=== PATIENT | male | born 1945 | race Caucasian/White ===

== ENCOUNTER 2018-10-18 14:38 | Emergency (ER) | payer MEDICARE ==
--- NOTE | 2018-10-18 16:14 | EDM.PDOC ---
ED HPI GENERAL MEDICAL PROBLEM - General Chief Complaint: ENT Problem Stated Complaint: GRASS IN RIGHT EYE Time Seen by Provider: 10/18/18 15:53 Source of Information: Reports: Patient History Limitations: Reports: No Limitations - History of Present Illness INITIAL COMMENTS - FREE TEXT/NARRATIVE: 72 yo male presents to ER with mild irritation and very red right eye. He was mowing his lawn and felt something fly into his eye. generally healthy right eye Pain Score (Numeric/FACES): 2 - Related Data Allergies Allergy/AdvReac Type Severity Reaction Status Date / Time amoxicillin [From Augmentin] Allergy Other Verified 10/18/18 15:49 clavulanic acid Allergy Other Verified 10/18/18 15:49 [From Augmentin] Home Meds: Home Meds Aspirin [Low Dose Aspirin EC] 81 mg PO DAILY 10/18/18 [History] Omeprazole Magnesium [Prilosec Otc] 20 mg PO DAILY 10/18/18 [History] hydroCHLOROthiazide [Hydrochlorothiazide] 12.5 mg PO DAILY 10/18/18 [History] predniSONE [Prednisone] 2.5 mg PO DAILY 10/18/18 [History] Past Medical History Cardiovascular History: Reports: Arrhythmia, Hypertension Gastrointestinal History: Reports: GERD - Past Surgical History Musculoskeletal Surgical History: Reports: Knee Replacement Social & Family History - Tobacco Use Smoking Status *Q: Never Smoker - Caffeine Use Caffeine Use: Reports: Coffee - Alcohol Use Days Per Week of Alcohol Use: 7 Number of Drinks Per Day: 1 Total Drinks Per Week: 7 - Recreational Drug Use Recreational Drug Use: No ED ROS GENERAL - Review of Systems Review Of Systems: See Below Constitutional: Denies: Fever, Chills HEENT: Reports: Eye Pain. Denies: Eye Discharge Respiratory: Denies: Shortness of Breath ED EXAM GENERAL W FULL EYE - Physical Exam Exam: See Below Exam Limited By: No Limitations General Appearance: Alert, WD/WN, No Apparent Distress Eye Exam: Bilateral Eye: PERRL Eyelids: Bilateral: Normal Appearance Conjunctiva & Sclera: Right: Subconjuctival Hemorrhage Cornea Exam: Bilateral: Normal Appearance Extraocular Movements: Bilateral: Intact Pupils: Normal Accommodation Ears: Normal External Exam Nose: Normal Inspection Head: Atraumatic, Normocephalic Respiratory/Chest: No Respiratory Distress Course - Vital Signs Last Recorded V/S: Last Vital Signs Temp 35.0 C L 10/18/18 15:48 Pulse 71 10/18/18 15:48 Resp 17 10/18/18 15:48 BP 137/82 10/18/18 15:48 Pulse Ox 97 10/18/18 15:48 - Re-Assessments/Exams Free Text/Narrative Re-Assessment/Exam: 10/18/18 16:21 provacaine 3 gtts to eye. eye flushed with normal saline and examined with lifting of eye lid no foreign body found. area of possible wound identified in the right upper lateral sclera. scant pooling of blood along base of right eye. no pressure or pain. vision remains intact Departure - Departure Time of Disposition: 16:08 Disposition: Home, Self-Care 01 Condition: Good Clinical Impression: Scleral hemorrhage of right eye - Discharge Information *PRESCRIPTION DRUG MONITORING PROGRAM REVIEWED*: Not Applicable *COPY OF PRESCRIPTION DRUG MONITORING REPORT IN PATIENT SWETA: Not Applicable Instructions: Ear Foreign Body, [id number] Referrals: PCP,None [Primary Care Provider] - Additional Instructions: polytrim 2 drops right eye every 4 hours while awake for 7 days If you loose vision, or pain increases you need to be seen again If no improvement in irritation by Sunday follow-up with eye doctor it may take 2-3 weeks for the redness to resolve
== END 2018-10-18 16:43 | disposition home or self-care (01) ==
LOC: JP.ED 14:38
DX: H11.31 Conjunctival hemorrhage, right eye (principal); I10 Essential (primary) hypertension; K21.9 Gastro-esophageal reflux disease without esophagitis; Z88.1 Allergy status to other antibiotic agents; Z79.82 Long term (current) use of aspirin; Z79.899 Other long term (current) drug therapy; Z88.8 Allergy status to other drugs, medicaments and biological substances
CPT/HCPCS: 99283